=== PATIENT | female | born 1995 | race Caucasian/White ===

== ENCOUNTER 2017-02-18 17:32 | Emergency (ER) | payer OTHER ==
[2017-02-18 17:39] VITALS: RESP 16
--- NOTE | 2017-02-18 19:17 | EDPHY ---
HPI/HX/ROS/PE/MDM - Data Points Imaging: Discussed imaging studies w/ peer tutor Radiologist Narrative: CHIEF COMPLAINT: RLQ pain HISTORY OF PRESENT ILLNESS: The patient is a 22-year-old female presenting with with right lower quadrant abdominal pain. She reports feeling bloating two nights ago. Last night she developed an aching, soreness in the right lower quadrant. Her pain improves when lying still. Pain is exacerbated with movement. No change with food. She reports pain in her low back that feels similar to previous UTI, though she denies urinary complaints. Patient notes low grade fever today. She denies nausea, vomiting, or diarrhea. LMP ended yesterday. REVIEW OF SYSTEMS: Aside from elements discussed in the HPI, a comprehensive 10-point review of systems was reviewed and is negative. PAST MEDICAL HISTORY: Denies. SOCIAL HISTORY: Single. VITAL SIGNS: Reviewed by me GENERAL: Well-developed, well-nourished, resting comfortably in no respiratory distress. Patient reports pain in her left lower back when lying flat as well as in the right lower quadrant. HEENT: Atraumatic. Eyes: No icterus, no injection. Mouth: moist mucous membranes. No erythema or lesions. Neck: supple with no adenopathy. LUNGS: Clear to auscultation bilaterally, no wheezes, rhonchi or rales. CARDIAC: Regular rate and rhythm, no rubs, murmurs or gallops. ABDOMEN: Soft, mildly distended, right lower quadrant tenderness. No guarding or rebound. BACK: No right or left CVA tenderness. EXTREMITIES: No trauma. No edema. Range of motion is normal throughout. NEURO: Alert and oriented, grossly nonfocal. SKIN: Warm and dry, no rash. PSYCHIATRIC: Normal mentation, no agitation. Portions of this note were transcribed by a medical billing specialist. I personally performed a history, physical exam, medical decision making, and confirmed accuracy of information the transcribed note. (Sandra Klein) ED Course: Patient presents with RLQ tenderness. Patient has no associated N/V/D. Plan for basic labs, urinalysis, and US abdomen/pelvis. Lab work is completely normal. Urinalysis is negative for infection. Ultrasound is pending. Ultrasound demonstrates some fluid in the right lower quadrant. Questionable appendix is seen. CT scan reveals normal appendix and moderate free fluid in pelvis. Possible ruptured ovarian cyst. Results discussed with patient and father. Comfortable being discharged with precautions and advised to use nsaid. (Sandra Klein) MDM: The differential diagnosis for the patient's abdominal pain was considered including but not limited to ovarian cyst, pelvic inflammatory disease, ovarian torsion, urinary tract infection, related complications, and appendicitis. (ErnieSandra Val) - Data Points Laboratory Results: Laboratory Results 02/18/17 19:35 02/18/17 19:35 Medications Given: Discontinued Medications Sodium Chloride (Ns) 1,000 mls @ 0 mls/hr IV ONCE ONE PRN Reason: Wide Open Stop: 02/18/17 19:54 Last Admin: 02/18/17 19:53 Dose: 1,000 mls General Time Seen by Provider: 02/18/17 19:16 Initial Vital Signs: Initial Vital Signs Temperature (C) 36.9 C 02/18/17 17:36 Heart Rate 98 02/18/17 17:36 Respiratory Rate 16 02/18/17 17:36 Blood Pressure 136/90 H 02/18/17 17:36 O2 Sat (%) 98 02/18/17 17:36 O2 Delivery Mode Room Air Allergies/Adverse Reactions: ciprofloxacin [From Cipro] Allergy (Verified 02/18/17 17:39) Home Medications: Medication Instructions Recorded Control 02/18/17 Departure - Departure Disposition: Home, Routine, Self-Care Clinical Impression: Possible ovarian cyst Abdominal pain Qualifiers: Abdominal location: right lower quadrant Qualified Code(s): R10.31 - Right lower quadrant pain Condition: Good Instructions: Ovarian Cyst (ED), Acute Abdominal Pain (ED) Additional Instructions: There is no sign of appendicitis on your CT scan. There is some free fluid in the right lower quadrant and around to the pelvis. It is possible that you may have had a small ovarian cyst which has ruptured. It is safe to treat your discomfort with ibuprofen. I recommend Ibuprofen (Motrin, Advil) or Naproxen Sodium (Aleve) for pain and anti-inflammatory effects. You may take either one, but do not take both. Your dose is: Ibuprofen 600 mg every 6-8 hours with food. OR Naproxen Sodium (Aleve) 220 mg every 12 hours. Please seek care if you develops worsening pain, fevers, vomiting, or other concerns. Referrals: Afshan Cha MD [Primary Care Provider] - As per Instructions Report Scribed for: Sandra Klein Report Scribed by: Lorraine Norton Date of Report: 02/18/17 Time of Report: 19:18
[2017-02-18] MEDS ORDERED: NS 1,000 ML IV ONE (19:53)
[2017-02-18 20:01] LABS: % IMMATURE GRANULYOCYTES 0.3 % (0.0-1.1); ABSOLUTE IMMATURE GRANULOCYTES 0.02 10^3/uL (0.00-0.10); ADD DIFF? NO; ADD MORPH? NO; ADD SCAN? NO; ATYPICAL LYMPHOCYTE FLAG 10 (0-99); FRAGMENT RBC FLAG 0 (0-99); HEMATOCRIT 41.8 % (38.0-47.0); HEMOGLOBIN 14.3 g/dL (12.6-16.3); LEFT SHIFT FLG 0 (0-99); LIPEMIA HEMOLYSIS FLAG 90 (0-99); MEAN CELL HEMOGLOBIN 29.9 pg (27.9-34.1); MEAN CELL HEMOGLOBIN CONCENTR. 34.2 g/dL (32.4-36.7); MEAN CELL VOLUME 87.3 fL (81.5-99.8); MEAN PLATELET VOLUME 10.1 fL (8.7-11.7); PLATELET CLUMPS FLAG 0 (0-99); PLATELET COUNT 288 10^3/uL (150-400); RED BLOOD CELL COUNT 4.79 10^6/uL (4.18-5.33); RED CELL DISTRIBUTION WIDTH 12.6 % (11.5-15.2)
[2017-02-18 20:09] LABS: ANION GAP 13 mEq/L (8-16); CALCIUM 10.1 mg/dL (8.5-10.4); CARBON DIOXIDE 22 mEq/l (22-31); CHLORIDE 105 mEq/L (97-110); CREATININE 0.7 mg/dL (0.6-1.0); GLOMERULAR FILTRATION RATE > 60; GLUCOSE 84 mg/dL (70-100); POTASSIUM 3.9 mEq/L (3.5-5.2); SODIUM 140 mEq/L (134-144)
[2017-02-18 20:10] LABS: COLOR YELLOW; LEUKOCYTE ESTERASE,URINE NEGATIVE (NEGATIVE); NITRITE,URINE NEGATIVE (NEGATIVE)
[2017-02-18 20:16] LABS: MUCUS TRACE /lpf (NONE-1+)
[2017-02-18 20:18] LABS: RBC,URINE NONE SEEN /hpf (0-3)
[2017-02-18] MEDS ORDERED: IOPAMIDOL (ISOVUE-300) 100 ML BTL ONE (22:20)
[2017-02-18 23:00] VITALS: BP 118/65; PULSE 78; TEMP 98.1; O2SAT 97
== END 2017-02-18 23:01 | disposition home or self-care (01) ==
DX: R10.31 Right lower quadrant pain (principal)
CPT/HCPCS: Q9967